=== PATIENT | female | born 1990 | race Caucasian/White ===

== ENCOUNTER 2017-03-19 15:46 | Observation (INO) ==
[2017-03-19 17:30] LABS: Basophils # 0.1 10*3/uL (0.0-0.2); Basophils % 0.8 % (0.0-0.8); Eosinophils # 0.3 10*3/uL (0.0-0.87); Eosinophils % 4.6 % (0.00-10.9); Hematocrit 40.5 VOL% (35.7-47.0); Hemoglobin 13.6 GM/DL (12.0-16.0); Immature Granulocytes % 0.2 %; Immature Granulocytes Absolute 0.01 #; Lymphocytes # 2.9 10*3/uL (1.4-4.0); Lymphocytes % 45.9 % (21.3-54.2); Mean Corpuscular HGB Conc 33.6 GM/DL (32-36); Mean Corpuscular Hemoglobin 29 PG (27-34); Mean Corpuscular Volume 86.7 FL (87-102); Mean Platelet Volume 9.5 FL (9.6-12.0); Monocytes # 0.4 10*3/uL (0.11-0.8); Monocytes % 6.8 % (1.7-12.7); Neutrophils # 2.7 10*3/uL (1.4-7.4); Neutrophils % 41.7 % (38.7-73.9); Platelet Count 287 T/CUMM (130-400); Red Blood Count 4.67 MC/CUMM (3.8-5.5); Red Cell Distribution Width 12.4 % (9.3-17.3); White Blood Count 6.4 T/CUMM (4-12)
[2017-03-19] MEDS ORDERED: LACTATED RINGERS 1,000 ML IV SCH (17:30)
[2017-03-19] MEDS ORDERED: MEPERIDINE 25 MG/1 ML VIAL IV PRN (17:54)
[2017-03-19] MEDS ORDERED: ONDANSETRON 4 MG/2 ML VIAL IV PRN (17:54)
[2017-03-19] MEDS ORDERED: TISSUE ADHESIVE 1 EACH APPLICATOR TOP ONE (18:05)
--- NOTE | 2017-03-19 18:38 | History and Physical Update ---
History and Physical Update - History and Physical H&P was reviewed, the patient examined and there: are no changes in the patients condition since last H&P was completed. - Dictation Physical: refer to scanned H&P - Physical Exam Mental Status: alert and oriented Heart: regular rate and rhythm Lung: clear to auscultation Abdomen: within normal limits Vitals: within normal limits
[2017-03-19] MEDS ORDERED: HYDROmorphone 2 MG/1 ML VIAL ONE (19:44)
[2017-03-19] MEDS: HYDROmorphone 2 MG/1 ML VIAL IV PRN ×4 (19:45→20:00)
--- NOTE | 2017-03-19 19:52 | Operative Note ---
Date of procedure: 03/19/17 Pre-op diagnosis: 5.8cm right ovarian cyst; pelvic pain Post-op diagnosis: same (+ path pending) Procedure: Diagnostic laparoscopy After informed consent was obtained the patient was taken to the OR where she is placed in supine position. Gen. LMA anesthesia was then administered by members anesthesia Department. The patient was then placed in dorsal lithotomy position in Jaret stirrups and sterilely prepped and draped in usual customary fashion. The bladder was catheterized for urine. A bimanual exam was then performed with no adnexal masses palpate. A weighted speculum was placed in the posterior vaginal vault and the anterior cervix was grasped with a single- tooth tenaculum and cervix was cleansed again with Betadine solution. A Hydrobee uterine manipulator was then placed and the single tooth tenaculum was removed. Attention was then drawn to the abdomen where a small incision was made in the subumbilical region. The Veress needle was passed through the incision without difficulty. Placement was assured by the hanging drop technique. Approximately 3 L of carbon dioxide gas was used to insufflate the abdomen. The Veress needle was removed. A 5 mm trocar was placed without difficulty. The laparoscope was placed and the pelvic contents are visualized. A second incision was made in the left lower quadrant A 5 mm trocar was placed under direct visualization. A third incision was made in right lower quadrant and a 5 mm trochar was passed under direct visualization. A grasper was placed through the port and manipulation of the pelvic contents was performed. The uterus, tubes and left ovary appeared to be without evidence of pathology. Careful inspection of the anterior and posterior cul-de-sacs was without evidence of pathology. The right ovary was markedly enlarged exceeding the size of the uterus. The ovarian surface was cut and the suction device was placed in this opening with a large amt of serous fluid removed. The cyst wall was then opened further and the excess ovarian and cyst wall tissue was excised using bipolar cautery with a scissor. This tissue was removed and sent to path. Irrigation of the pelvis was performed. After assuring hemostasis of the ovary, Interceed was placed over the open surfaces. The upper abdomen was inspected and appeared to be without evidence pathology. . The instruments were then removed, the gas was allowed to escape and the incisions were repaired with interrupted stitches of 4-0 Vicryl suture with good approximation and hemostasis. Anesthesia: other (LMA) Surgeon / Physician: Beth Escudero Estimated blood loss: minimal Specimens: other (ovarian tissue with cyst wall) Condition: stable Disposition: PACU Results - Labs CBC & BMP: 03/19/17 17:03 Discharge Plan - Discharge Medications No Action Cyclobenzaprine [Flexeril] 1 bottle PO BEDTIME Norgestimate-Ethinyl Estradiol [Sprintec 28 Day Tablet] 1 bottle PO DAILY - Follow Up or Referral - Forms/Instructions
--- NOTE | 2017-03-19 19:55 | Discharge Summary ---
Hospital Course - Hospital Course Hospital Course: Pt admitted directly from the office for diagnostic laparoscopy, drainage of right ovarian cyst and excision of cyst wall . She underwent the procedure without complication and was transferred to in stable condition. Discharge Plan - Discharge Data Disposition: Disch To Home/Self Care Condition at Discharge: Stable Discharge Diet: advance to your usual diet Activity: other (pelvic rest x 2 weeks) Hygiene: may shower Weight Bearing at Discharge: full weight bearing Driving: not for (at least 3 days or until no longer taking narcotics) Contact your physician if you experience:: fever over 101, Difficulty voiding, Redness or swelling, Nausea/Vomiting, Shortness of breath, Bleeding, pain uncontrolled by pain medications - Discharge Medications New oxyCODONE/ACETAMINOPHEN 5-325 [Percocet 5-325] 1 tablet PO Q4H PRN #30 tablet PRN Reason: Pain Moderate (4-7) Ibuprofen Tab [Motrin Tab] 800 mg PO Q8H PRN #30 tablet PRN Reason: Pain No Action Cyclobenzaprine [Flexeril] 1 bottle PO BEDTIME Norgestimate-Ethinyl Estradiol [Sprintec 28 Day Tablet] 1 bottle PO DAILY - Follow Up or Referral Follow Up: Beth Escudero DO [Primary Care Provider] - (as scheduled) - Forms/Instructions Exam - Constitutional Vitals: Period Temp Pulse Resp BP Sys/Paulino Pulse Ox Last 24 Hr 99.0 F 96 18-20 113/71 98 General appearance: normal weight, no acute distress - Head Head exam: Present: normal inspection, normocephalic Discharge Results Labs on day of discharge: Labs from last 24 hours 03/19/17 03/19/17 03/19/17 17:03 17:03 17:03 WBC 6.4 RBC 4.67 Hgb 13.6 Hct 40.5 MCV 86.7 L MCH 29 MCHC 33.6 RDW 12.4 Plt Count 287 MPV 9.5 L Neut % (Auto) 41.7 Lymph % (Auto) 45.9 Hudspeth % (Auto) 6.8 Eos % (Auto) 4.6 Baso % (Auto) 0.8 Neut # (Auto) 2.7 Lymph # (Auto) 2.9 [place]speth # (Auto) 0.4 Eos # (Auto) 0.3 Baso # (Auto) 0.1 Immature Gran % 0.2 Nucleated RBC % 0.0 Immature Gran # 0.01 Nucleated RBCs # 0.00 Immature Plt Fraction 0.0 Serum , Qual Negative Blood Type B POSITIVE Antibody Screen Negative DS: Provider Date of admission: 03/19/17 16:27 Primary care physician: Beth Escudero DO Attending physician on admission: Beth Escudero DO Discharging clinician: Beth Escudero DO Expected date of discharge: 03/19/17
[2017-03-19] MEDS ORDERED: oxyCODONE/ACETAMINOPHEN 5-325 MG TABLET PO PRN (19:56)
[2017-03-19] MEDS ORDERED: IBUPROFEN 800 MG TABLET PO PRN (19:56)
[2017-03-19] MEDS ORDERED: PROMETHAZINE 25 MG/1 ML VIAL IM PRN (22:49)
[2017-03-19] MEDS: SIMETHICONE CHEW 80 MG TABLET PO PRN (23:19)
[2017-03-20] MEDS ORDERED: MAGNESIUM HYDROXIDE SUSP 30 ML UDCUP PO PRN (02:43)
[2017-03-20] MEDS ORDERED: BISACODYL 10 MG SUPP RECTAL PRN (02:44)
[2017-03-20] MEDS: SIMETHICONE CHEW 80 MG TABLET PO PRN (05:01)
--- NOTE | 2017-03-20 08:40 | Anesthesia Post-Op ---
Anesthesia Post OP - Post Ansesthetic Evaluation Patient seen in post op: Yes Resp: within normal limits CV: within normal limits Mental: within normal limits Temp: within normal limits [id number]-Nt-Idirxpbbw: within normal limits Nausea and Vomiting: within normal limits Pain: within normal limits
--- NOTE | 2017-03-20 08:43 | Anesthesia Post-Op ---
Anesthesia Post OP - Post Ansesthetic Evaluation Patient seen in post op: Yes Resp: within normal limits CV: within normal limits Mental: within normal limits Temp: within normal limits [id number]: within normal limits Nausea and Vomiting: within normal limits Pain: within normal limits
[2017-03-20 11:47] VITALS: BP 103/72
--- NOTE | 2017-03-23 18:16 | Pathology Report from [facility] ---
[facility] ACCESSION # : [id number] PATIENT NAME : Liliam Roberts ORDERING DR : MIYA SIMPSON DO CLINICAL HX: Ovarian cyst POST-OP DX: Same SPECIMEN INFO: RT ovarian cyst tissue GROSS DESCRIPTION: Received in formalin labeled LILIAM ROBERTS is a 4 x 2 x 0.3 cm hernandez carranza cystic structure. The lining is focally hemorrhagic with no papillary excrescences identified. Senior Finance Manager section are submitted in one cassette. DIAGNOSIS FOR LILIAM ROBERTS: RIGHT OVARIAN CYST TISSUE, EXCISION: Benign ovarian serous cystadenoma. COLLECTED DATE: 03/20/2017 [facility] REPORT DATE: 03/23/2017 ELECTRONICALLY SIGNED BY: Nkechi Novak M.D. 03/23/2017 - 12:59:15 MTDHiram
== END 2017-03-20 09:45 | disposition home or self-care (01) ==
LOC: N.OB
PROVIDERS: ADMIT Obstetrics & Gynecology; ATTEND Obstetrics & Gynecology